=== PATIENT | female | born 1990 | race Caucasian/White ===

== ENCOUNTER 2024-12-16 18:24 | Emergency (ER) | payer MEDICAID, SELFPAY ==
[2024-12-16 18:42] VITALS: BP 134/93; PULSE 90; RESP 16; TEMP 36.7; O2SAT 96; BMI 42.7
[2024-12-16 19:24] VITALS: BP 140/105; PULSE 86; O2SAT 98
--- NOTE | 2024-12-16 20:15 | W.ED.HA ---
HPI - Headache General: Chief Complaint: Headache Stated Complaint: Headache Time Seen by Provider: 12/16/24 19:00 History of Present Illness: Chief complaint is intermittent headaches. No vision changes. No numbness weakness tingling arms or legs. No vomiting. No fever. No trauma. Patient states she has idiopathic intracranial hypertension. She states she moved here and she is out of her acetazolamide. She states she was up to 4 g a day. She states she just does not have a primary care doctor to prescribe it. She states she was told if she started having headaches that she should go get checked out and get back on it. No new vision changes. She states she is lost 30% of her vision in her right eye that has chronic vision changes but nothing that is new. No trauma or injury. Headaches come and go. Related Data Previous Rx's ?Medication ?Instructions ?Recorded fluoxetine 40 mg capsule (Prozac) 40 mg PO DAILY #30 caps 11/03/20 acetazolamide 500 mg 500 mg PO BID #90 caps 12/16/24 capsule,extended release Allergies Allergy/AdvReac Type Severity Reaction Status Date / Time sumatriptan Allergy ADR-Headach Verified 12/16/24 18:47 e [facility] ED PFSH: Social History Current gender identity: Female Female Reproductive History: Date of last menstrual period: 12/10/24 Physical Exam Narrative: EXAM NARRATIVE: Patient is alert oriented talkative laughing and joking with me. Moving her neck freely. Pupils equal reactive to light. No evident visual field deficit. Lungs are clear heart regular rhythm abdomen soft nontender extremities warm well-perfused no calf tenderness or pitting edema. No rash in exposed areas. No drift in the arms or legs. No facial droop. No signs of trauma. She is alert oriented. Moist mucous membranes. Neck is supple. No tenderness of her neck. Shows ability to reason and clear sensorium and appropriate affect. Course Vital Signs: Vital signs: Vital Signs Temperature 98.1 F 12/16/24 18:42 Pulse Rate 90 12/16/24 20:28 Respiratory Rate 16 12/16/24 18:42 Blood Pressure 131/84 12/16/24 20:28 Pulse Oximetry 99 12/16/24 20:28 Oxygen Delivery Me thod Room Air 12/16/24 20:28 MDM - Headache Medical Decision Making Patient presents complaining that she has had some intermittent headaches off and on for the last few days. She states she gets migraine headaches from time to time but usually they will go away and not come back and they were just more persistent so she started worrying that she should get checked out again to get back on her acetazolamide because she has been off it for several months now. She states she already had some vision damage from her idiopathic intracranial hypertension in the past. She denies any trauma or injury. No new neurologic deficits otherwise. She denies any new change in vision. Denies passing out. Denies any possibility of . She states she is not on hormone therapy or control. She just had a normal menstrual cycle a few days ago. Patient does have some mild papilledema on the right. On the left limited exam I suspect she has some mild papilledema on exam as well on the left. Broad differential. She denies family history of brain aneurysm or personal history of brain aneurysm. Headaches intermittent and not sudden onset. She has no meningeal signs. She denies trauma. Denies drug use. I discussed doing an LP to evaluate for her increased intracranial pressure and potential therapeutic benefits as well. Patient states she is very had 2 LPs and does not want another one. She declines after informed discussion. I discussed treatment options. She wants to know if there is something other than acetazolamide she can take because it gives her metallic taste in her mouth. I advised this would be first-line therapy and benefits and risk. She decided she does not want to start back on the acetazolamide. Will start her back on 500 mg twice a day and have her taper up to 4 g a day as tolerated. She states she was on 4 g a day before. I advised her potential risk of further vision loss and dangers of untreated idiopathic intracranial hypertension and importance of prompt ophthalmology follow-up and primary care follow-up. I advised broad differential and limits of ED evaluation. Patient feels comfortable with outpatient management. I advised that if she develops any new vision changes or cannot get an ophthalmology or any worsening or concerning headaches or changes her mind for any reason immediate return to the emergency room. Patient capable and informed and requesting outpatient management. I will send a prescription for acetazolamide. I advised her low-sodium diet. I put in case management order for ophthalmology, neurology and primary care referral No radiology studies performed this visit Discharge Plan Discharge Patient Disposition: Home Clinical Impression: Intermittent headache Condition: Stable Prescriptions: New acetazolamide 500 mg capsule, extended release 500 mg PO BID Qty: 90 0RF Rx Instructions: After a few days increase to take 1000 mg by mouth twice daily. Continue to gradually increase with a goal of 2000 mg by mouth twice a day No Action fluoxetine [Prozac] 40 mg capsule 40 mg PO DAILY Qty: 30 2RF Discharge Orders: Discharge ED (Routine); Ordered 12/16/24 Ordered By: Stu Barton Patient Instructions: Opioid Safety, Pain Management, Patient Portal & Daria Instructions Activity Restrictions/Additional Instructions: Follow-up with physical fitness teacher within the next week. Come back immediately if change in vision, worsening or concerning headache, fever or vomiting, weakness in your arms or legs, change from prior headaches, abdominal pain, chest pain, shortness of breath, any worse or concerns. Follow low-sodium diet. Follow-up with primary care and neurology as well Print Language: Greek Coding Level of Care Code ED Field Technical Assistant for Aravind Lozano
[2024-12-16 20:28] VITALS: BP 131/84; PULSE 90; O2SAT 99
[2024-12-16 21:00] VITALS: BP 127/107; PULSE 81; O2SAT 96
--- NOTE | 2024-12-17 07:12 | DCPLANNER ---
messaged neuro & [facility] for er f/u. faxed referral to [facility]
== END 2024-12-16 21:14 | disposition home or self-care (01) ==
PROVIDERS: Emergency Provider Emergency Medicine
DX: R51.9 Headache, unspecified (principal)
CPT/HCPCS: 99283; J9999

== ENCOUNTER → 2025-01-20 15:28 | Outpatient (BNVA) | payer MEDICAID, SELFPAY | DX: Z01.419 Encounter for gynecological examination (general) (routine) without abnormal findings (principal) | CPT/HCPCS: 87624 ==

== ENCOUNTER 2025-02-04 10:50 | Outpatient (CLI) | payer MEDICAID, SELFPAY ==
--- NOTE | 2025-02-04 10:45 | MM_ITS ---
WS: [id number] DIAGNOSTIC BILATERAL DIGITAL BREAST TOMOSYNTHESIS MAMMOGRAPHY WITH CAD RIGHT breast ultrasound, limited HISTORY: right breast mass COMPARISON: None available. TECHNIQUE: Bilateral craniocaudad, mediolateral oblique, and mediolateral views are submitted with tomosynthesis and SM. Spot compression RIGHT CC and MLO. Computer aided detection utilized. Breast composition: There are scattered areas of fibroglandular density. Triangular marker is placed along the inferior lateral RIGHT breast. There is a very superficial nodule which is not very well visualized by mammography. There is no distortion or skin thickening. No mass identified. No suspicious grouping of calcifications within either breast. RIGHT breast ultrasound, limited. Ultrasound is directed along the 7:00 axis instructed by the patient in the area of concern. There is no underlying mass or distortion. No soft tissue abnormality. MM/MM diag BI tomosynthesis [id number] IMPRESSION: BI-RADS: 1 - Negative. FOLLOW UP: Age 42 No mammographic or ultrasound abnormality in the RIGHT breast in the area of co ncern.
--- NOTE | 2025-02-04 11:00 | US_ITS ---
WS: [id number] DIAGNOSTIC BILATERAL DIGITAL BREAST TOMOSYNTHESIS MAMMOGRAPHY WITH CAD RIGHT breast ultrasound, limited HISTORY: right breast mass COMPARISON: None available. TECHNIQUE: Bilateral craniocaudad, mediolateral oblique, and mediolateral views are submitted with tomosynthesis and SM. Spot compression RIGHT CC and MLO. Computer aided detection utilized. Breast composition: There are scattered areas of fibroglandular density. Triangular marker is placed along the inferior lateral RIGHT breast. There is a very superficial nodule which is not very well visualized by mammography. There is no distortion or skin thickening. No mass identified. No suspicious grouping of calcifications within either breast. RIGHT breast ultrasound, limited. Ultrasound is directed along the 7:00 axis instructed by the patient in the area of concern. There is no underlying mass or distortion. No soft tissue abnormality. US/US breast RT limited* [id number] IMPRESSION: BI-RADS: 1 - Negative. FOLLOW UP: Age 42 No mammographic or ultrasound abnormality in the RIGHT breast in the area of co ncern.
== END 2025-02-04 10:51 | disposition home or self-care (01) ==
LOC: RAD 10:51
DX: N63.10 Unspecified lump in the right breast, unspecified quadrant (principal)
CPT/HCPCS: 76642; 77062; G0279

== ENCOUNTER 2025-02-11 14:25 | Outpatient (CLI) | payer MEDICAID, SELFPAY ==
--- NOTE | 2025-02-11 14:30 | MR_ITS ---
WS: [id number] MRI BRAIN WITH AND WITHOUT CONTRAST HISTORY: G93.2 - Benign intracranial hypertension COMPARISON: CT head 04/28/2017 TECHNIQUE: Multiplanar imaging performed through the brain with MultiHance 20 ml's IV. No acute infarcts are seen. Conteh-white matter differentiation is well preserved. No susceptibility artifacts or prior lacunar infarcts. Ventricles and extra-axial spaces are normal. Clivus and pituitary gland are normal. Similar configuration of the pituitary gland and sella turcica as noted on the CT from 2017. No mass. Visualized posterior fossa and brainstem are also normal. No inferior descent of the cerebellar tonsils. Postcontrast images are negative for masses or vascular malformations. Dural venous sinuses are normal. Paranasal sinuses: Small mucous retention cyst in the RIGHT maxillary sinus. No air-fluid levels. Mastoid air cells: Normal. Calvarium and scalp: Normal. MR/MR head wo/w con [id number] IMPRESSION: 1. Normal MRI brain. 2. No enhancing masses. 3. Normal size ventricles. 4. No evidence for intracranial hypertension. 5. No acute or remote infarct or hemorrhage.
[2025-02-11] MEDS: gadobenate dimeglumine 20 mL vial IV (15:28)
== END 2025-02-11 14:26 | disposition home or self-care (01) ==
LOC: RAD 14:26
PROVIDERS: Visit Provider Family Medicine
DX: G93.2 Benign intracranial hypertension (principal); J34.1 Cyst and mucocele of nose and nasal sinus
CPT/HCPCS: 70553

== ENCOUNTER 2025-02-18 08:27 | Outpatient (CLI) | payer MEDICAID, SELFPAY ==
--- NOTE | 2025-02-18 08:30 | FL_ITS ---
WS: [id number] LUMBAR PUNCTURE CLINICAL INFORMATION: G93.2 - Benign intracranial hypertension TECHNIQUE: Informed consent: The procedure and its potential risk and complications were discussed with the patient. Verbal and written consent was obtained. Timeout: A timeout was performed to confirm correct patient, procedure, and site. Patient was prepped and draped in the usual sterile fashion. Lidocaine 1% was used for local anesthesia. Utilizing fluoroscopic guidance, a 5.0 inch 22-gauge spinal needle was advanced into the subarachnoid space at L3-L4 via LEFT oblique sublaminar approach. Free flow of CSF was obtained. 13 cc of CSF was collected and sent the lab for further analysis. Initial CSF flow was blood-tinged which immediately cleared with additional drainage Patient elected to leave the department after approximately 15-20 minutes and signed the AMA paperwork. Risks and reasons for remaining supine post procedure were explained to the patient. Department protocol for lumbar puncture is to remain supine 50 minutes post procedure to decrease the risk of CSF leak and post lumbar puncture headache. Opening pressure 21 cmH2O FLUOROSCOPIC TIME: 1min [id number] # of spot films: 1 FL/FL guided lumbarpunc dx* [id number] IMPRESSION: Fluoroscopically guided lumbar puncture. No immediate complications
[2025-02-18 09:40] LABS: CSF Mononuclear # 0.001 10^3/uL (50-90); Mononuclear WBC CSF % 100 % (50-90); Polynuclear Cells ,CSF # 0.000 10^3/uL (0-10); Polynuclear WBC CSF % 0 % (0-10); Red Blood Cell CSF 0 10^3/uL (0-0); White Blood Cell CSF 1 /uL (0-5)
[2025-02-18 10:19] LABS: Pathology Referral Yes
== END 2025-02-18 08:28 | disposition home or self-care (01) ==
LOC: RAD 08:28
PROVIDERS: Visit Provider Nurse Practitioner
DX: G93.2 Benign intracranial hypertension (principal); D16.6 Benign neoplasm of vertebral column
CPT/HCPCS: 62328; 80503; 82945; 84157; 89050; J9999

== ENCOUNTER → 2025-04-07 14:51 | Outpatient (BNVA) | payer MEDICAID, SELFPAY | DX: E66.01 Morbid (severe) obesity due to excess calories (principal); Z68.41 Body mass index [BMI] 40.0-44.9, adult | CPT/HCPCS: 80053; 80061; 84443 ==